=== PATIENT | female | born 1975 | race Two or more races ===

== ENCOUNTER → 2025-01-28 | Outpatient (CLI) | payer MEDICAID, SELFPAY ==
--- NOTE | 2025-01-28 11:30 | XR_ITS ---
Examination: Screening digital mammography, bilateral Computer aided detection 3-D breast Tomosynthesis, bilateral Date and time of exam: January 28, 2025 1116 hours Compared to mammograms dating to May 19, 2011 Indication: Screening Technique: Nonmagnified MLO, CC views of the breasts to been obtained, reconstructed from 3-D Tomosynthesis images. R2 computer aided detection program utilized for evaluation of suspicious masses and/or abnormal calcifications. 3-D Tomosynthesis images obtained. Findings: Scattered areas of fibroglandular density. Benign calcifications. No interval suspicious masses Impression: BI-RADS category II: Benign Findings. Recommend 1 year follow-up mammogram.
== END | disposition home or self-care (01) ==
PROVIDERS: PCP Psychiatry & Neurology Neurology
DX: Z12.31 Encounter for screening mammogram for malignant neoplasm of breast (principal); R92.323 Mammographic fibroglandular density, bilateral breasts; R92.1 Mammographic calcification found on diagnostic imaging of breast
CPT/HCPCS: 77063; 77067

== ENCOUNTER 2025-03-18 09:36 | Emergency (ER) | payer MEDICAID, SELFPAY ==
[2025-03-18 09:46] VITALS: BP 135/85; PULSE 73; RESP 17; TEMP 36.7; O2SAT 96; BMI 27.9
--- NOTE | 2025-03-18 10:07 | PC.NURSE ---
PT IN TODAY AFTER HAVING ASTHMA ATTACK THAT STARTED LAST NIGHT. PT DOES HAVE INHALER AT HOME AND DID USE IT. PT STATES THAT AT THIS TIME SHE FEELS, OK. PT SPO2 IS 95% ON RA. LUNG SOUNDS ARE CLEAR. PT AWAITING TO BE SEEN BY .
[2025-03-18 10:30] VITALS: BP 138/94; PULSE 69; RESP 15; TEMP 36.8; O2SAT 94
[2025-03-18 11:45] VITALS: PULSE 74
[2025-03-18] MEDS: ALBUTEROL RT 2.5 MG/3 ML NEBU INH (11:45)
[2025-03-18 11:46] VITALS: PULSE 65; RESP 19; O2SAT 99
--- NOTE | 2025-03-18 11:58 | PD.EDADULT ---
ED General RME/HPI General Chief complaint: Asthma Stated complaint: ASTHMA ATTACK; DIFFICULTY BREATHING Time Seen by Provider: 03/18/25 10:39 Arrival date/time: 03/18/25 09:36 Limitations: no limitations RME / HPI RME / HPI narrative: DR. PETER MAIN ED EVALUATION: 49 year old female with past medical history significant for asthma and diabetes presents to the Emergency Department with complaint of shortness of breath today. She states her inhaler is not helping. No other symptoms reported at this time. Family history is significant for diabetes. Social Hx: No tobacco, alcohol, or substance use. Related Data Home Medications ?Medication ?Instructions ?Recorded ?Confirmed fluticasone 500 mcg-salmeterol 50 1 inh inhalation Q12H 10/11/18 03/02/23 mcg/dose blistr powdr for inhalation (Advair Diskus) cetirizine 10 mg tablet (Zyrtec) 10 mg PO QDAY 02/13/19 03/02/23 albuterol sulfate 90 mcg/actuation 2 puff inhalation Q4HR PRN Wheezing 03/02/23 03/02/23 aerosol inhaler atorvastatin 20 mg tablet 20 mg PO DAILY 03/02/23 03/02/23 buspirone 10 mg tablet 10 mg PO BID 03/02/23 03/02/23 metformin 500 mg tablet 500 mg PO BID 03/02/23 03/02/23 Previous Rx's ?Medication ?Instructions ?Recorded albuterol sulfate 90 mcg/actuation 2 inh inhalation Q6H PRN shortness 03/18/25 breath activated powder inhaler of breath #1 ea azithromycin 500 mg tablet 500 mg PO QDAY 5 days #5 tabs 03/18/25 prednisone 20 mg tablet See Taper PO QDAY allergic 03/18/25 reaction #18 tabs Allergies Allergy/AdvReac Type Severity Reaction Status Date / Time Penicillins AdvReac Severe Vomiting Verified 03/18/25 09:38 Review of Systems Review of Systems Systems Reviewed: All systems reviewed, normal except as documented Past Medical History Past Medical History NEUROLOGIC: Negative Neurological Disorders or Seizures CARDIAC: Positive Cardiac Disorders and Hypercholesterolemia; Negative Congestive Heart Failure RESPIRATORY: Positive Asthma; Negative Chronic Obstructive Pulmonary Disease (COPD) GASTROINTESTINAL: Positive Gastrointestinal Disorders and Gastroesophageal Reflux Disease GENITOURINARY: Negative Genitourinary Disorders or Renal Disease REPRODUCTIVE: Positive Previous Pregnancies MUSCULOSKELETAL: Negative Musculoskeletal Disorders ENDOCRINE: Positive Endocrine Disorders and Diabetes Mellitus Type 2; Negative Diabetes Mellitus Type 1 HEMATOLOGIC: Negative Blood Disorders PSYCHO/SOCIAL: Positive Psychiatric Problems, Depression and Anxiety OTHER HISTORY: Positive Chicken Pox; Negative Autoimmune Disease, Blood Transfusions, Anesthesia Reactions or Cancer Family History FAMILY HISTORY: Positive Family Psychiatric Problems, Family Cardiac Disorders and Family Cancer; Negative Family Respiratory Disorders, Family Gastrointestinal Problems, Family Surgery or Family Anesthesia Reaction Surgical History SURGICAL: Positive Tubal Ligation (TUMOR REMOVED FROM OVERIES) Social History SMOKING STATUS: Never smoker ED Exam General Limitations: Present no limitations General appearance: Present alert and in no apparent distress Head Head exam: Present atraumatic, normocephalic and normal inspection Eye Eye exam: Present normal appearance, PERRL and EOMI ENT ENT exam: Present normal exam, normal oropharynx and mucous membranes moist Neck Neck exam: Present normal inspection, full ROM and trachea midline Chest Chest inspection: Present normal inspection and symmetric chest wall rise Respiratory Respiratory exam: Present normal lung sounds bilaterally and other (No rhonchi or rales); Absent respiratory distress or wheezes Cardiovascular Cardiovascular exam: Present regular rate, normal rhythm and normal heart sounds Abdominal Exam Abdominal exam: Present soft and normal bowel sounds Extremities Exam Extremities exam: Present normal inspection and full ROM Back Exam Back exam: Present normal inspection and full ROM Neurological Exam Neurological exam: Present alert, oriented X3 and CN II-XII intact Psychiatric Psychiatric exam: Present normal affect and normal mood Skin Skin exam: Present warm, dry, intact and normal color Course Quality Measures none Orders Category Date Time Status ALBUTEROL RT 3ml [Proventil Rt 3ml] Med 03/18/25 11:19 Discontinued 2.5 mg INH X1 ONE MethylPREDNISolone. [SoluMEDROL Inj] Med 03/18/25 11:19 Discontinued 40 mg IM X1 ONE Vital Signs Vital signs: Vital Signs Temperature 98.1 F 03/18/25 09:46 Pulse Rate 73 03/18/25 09:46 Respiratory Rate 17 03/18/25 09:46 Blood Pressure 135/85 H 03/18/25 09:46 Pulse Oximetry (%) 96 03/18/25 09:46 Discharge Plan Plan Patient Disposition: HOME (Self Care) Patient condition on transfer: Stable Prescriptions/Referrals Prescriptions/Med Rec: New prednisone 20 mg tablet See Taper PO QDAY MDD 3 Qty: 18 0RF Taper: Prednisone Taper 10 mg DAILY for 2 Days and 0 Hour Rx Instructions: Take 3 Tabs q Day for 3 days then take 2 tabs q Day for 3 days then take 1 tablet q Day for 3 days then D/C albuterol sulfate 90 mcg/actuation aerosol powdr breath activated 2 inh inhalation Q6H MDD 8 inhalations PRN (Reason: shortness of breath) Qty: 1 0RF azithromycin 500 mg tablet 500 mg PO QDAY 5 Days Qty: 5 0RF No Action fluticasone propion-salmeterol [Advair Diskus] 500-50 mcg/dose Blister With Device 1 inh INHALATION Q12H cetirizine [Zyrtec] 10 mg Tablet 10 mg PO QDAY metformin 500 mg tablet 500 mg PO BID Patient Comments: TAKE 1 TABLET BY MOUTH TWICE A DAY WITH MEALS atorvastatin 20 mg tablet 20 mg PO DAILY Patient Comments: TAKE 1 TABLET BY MOUTH EVERY DAY IN THE EVENING buspirone 10 mg tablet 10 mg PO BID Patient Comments: TAKE 2 TABLETS BY MOUTH TWICE A DAY albuterol sulfate 90 mcg/actuation HFA aerosol inhaler 2 puff INHALATION Q4HR PRN (Reason: Wheezing) Patient Comments: TAKE 2 PUFFS BY MOUTH EVERY 4 HOURS NEEDED FOR WHEEZING, SHORTNESS OF BREATH,COUGH Referrals: Lauren Valadez FNP-C [Primary Care Provider] - In 1 week Problem List Clinical Impression: Asthma with acute exacerbation Patient/Caregiver Discharge Instructions Education Materials: Asthma Additional Instructions: Please follow-up with your primary care physician within 2-3 days. Return to the Emergency Department as needed. Print Language: Icelandic Stand Alone Forms: Fauzia Award Info., Patient Portal Info Letter MDM Narrative [facility] hospital course: I, Ana Lilia Matson am scribing for and in the presence of Dr. Peter. Clinical Information Provided by patient Medical Records Reviewed [facility] Meds/Rx Considered, not Ordered None Labs/Rad/Tests considered, not Ordered None Chronic Illness/Social Conditions Add or document further as needed: PMHx: Asthma and diabetes. Family history is significant for diabetes. Social Hx: No tobacco, alcohol, or substance use. EKG EKG not done Lab Interpretation Labs: none Imaging Imaging interpretation: none Medication Administration(s) Medication Administration History Discontinued Medications Albuterol (Albuterol Rt 2.5 Mg/3 Ml Nebu) 2.5 mg INH X1 ONE Stop: 03/18/25 11:20 Last Admin: 03/18/25 11:45 Dose: 2.5 mg Documented By: TAYO Methylprednisolone Sodium Succinate (Methylprednisolone Sod Succ 40 Mg Vial) 40 mg IM X1 ONE Stop: 03/18/25 11:20 Last Admin: 03/18/25 11:28 Dose: 40 mg Documented By: CANDACE Diagnosis Differential diagnosis: asthma exacerbation, PE, pneumonia Most likely dx, and/or detailed dx discussion: Exacerbation of asthma Dispositon Disposition: Discharge Home
[2025-03-18 12:35] VITALS: BP 128/85; PULSE 88; O2SAT 96
== END 2025-03-18 12:36 | disposition home or self-care (01) ==
PROVIDERS: Emergency Provider Family Medicine
DX: J45.901 Unspecified asthma with (acute) exacerbation (principal)
CPT/HCPCS: 94640; 96372; 99283; J2919

== ENCOUNTER 2025-04-09 18:59 | Emergency (ER) | payer MEDICAID, SELFPAY ==
[2025-04-09 19:00] VITALS: BMI 27.8
[2025-04-09 19:14] VITALS: BP 126/86; PULSE 82; RESP 18; TEMP 36.9; O2SAT 95
--- NOTE | 2025-04-09 19:55 | XR_ITS ---
Examination: CT abdomen and pelvis without contrast. Coronal 3-D reconstructions. Sagittal 2-D reconstructions. Date and time of exam:April 09, 2025 2040 hours INDICATIONS: Epigastric pain beginning 2 days ago CTDI: vol (mGy): 7.85 DLP: (mGycm): 430 Technique: Axial images of the abdomen have been obtained, 3 mm slice thickness Intravenous contrast material has not been administered. Low dose protocols were performed. One or more of the following dose reduction techniques were used; automated exposure control, adjustment of the mA and/or KV according to patient size, use of iterative reconstruction technique. Findings: No focal liver or splenic lesions Contracted gallbladder. No pancreatic or adrenal mass No renal or ureteral calculi, no hydronephrosis Aorta normal size No bowel obstruction Normal appendix No diverticulitis Urinary bladder is intact IMPRESSION: No renal or ureteral calculi, no hydronephrosis. Normal appendix. No bowel obstruction diverticulitis or free air
--- NOTE | 2025-04-09 19:56 | PD.EDNV ---
Nausea/Vomit./Diarrhea-RME/HPI General Chief complaint: Nausea/Vomiting/Diarrhea Stated complaint: VOMITING Time Seen by Provider: 04/09/25 19:50 Arrival date/time: 04/09/25 18:59 49F with history of DM, asthma, and anxiety presents to ED with 1 day of N/V. Patient denies any pain including dysuria and ab pain. Patient also denies diarrhea. No new meds or dose changes. Limitations: no limitations Related Data Home Medications ?Medication ?Instructions ?Recorded ?Confirmed fluticasone 500 mcg-salmeterol 50 1 inh inhalation Q12H 10/11/18 03/02/23 mcg/dose blistr powdr for inhalation (Advair Diskus) cetirizine 10 mg tablet (Zyrtec) 10 mg PO QDAY 02/13/19 03/02/23 albuterol sulfate 90 mcg/actuation 2 puff inhalation Q4HR PRN Wheezing 03/02/23 03/02/23 aerosol inhaler atorvastatin 20 mg tablet 20 mg PO DAILY 03/02/23 03/02/23 buspirone 10 mg tablet 10 mg PO BID 03/02/23 03/02/23 metformin 500 mg tablet 500 mg PO BID 03/02/23 03/02/23 Previous Rx's ?Medication ?Instructions ?Recorded albuterol sulfate 90 mcg/actuation 2 inh inhalation Q6H PRN shortness 03/18/25 breath activated powder inhaler of breath #1 ea prednisone 20 mg tablet See Taper PO QDAY allergic 03/18/25 reaction #18 tabs Allergies Allergy/AdvReac Type Severity Reaction Status Date / Time Penicillins AdvReac Severe Vomiting Verified 04/09/25 18:59 Review of Systems Review of Systems Systems Reviewed: All systems reviewed, normal except as documented Constitutional Constitutional: Reports system reviewed and no additional complaints, except as documented, Denies fever(s) and Denies headache(s) ENT Ears, Nose, Mouth, and Throat: Denies disequilibrium and Denies headache(s) Cardiovascular Cardiovascular: Reports system reviewed and no additional complaints, except as documented, Denies chest pain and Denies dyspnea Respiratory Respiratory: Reports system reviewed and no additional complaints, except as documented, Denies cough and Denies dyspnea Gastrointestinal Gastrointestinal: Reports system reviewed and no additional complaints, except as documented, Reports as per HPI, Denies abdominal pain, Reports nausea and Reports vomiting Neurologic Neurologic: Reports system reviewed and no additional complaints, except as documented, Denies confusion, Denies disequilibrium and Denies headache(s) Psychiatric Psychiatric: Denies confusion Past Medical History Past Medical History NEUROLOGIC: Negative Neurological Disorders or Seizures CARDIAC: Positive Cardiac Disorders and Hypercholesterolemia; Negative Congestive Heart Failure RESPIRATORY: Positive Asthma; Negative Chronic Obstructive Pulmonary Disease (COPD) GASTROINTESTINAL: Positive Gastrointestinal Disorders and Gastroesophageal Reflux Disease GENITOURINARY: Negative Genitourinary Disorders or Renal Disease REPRODUCTIVE: Positive Previous Pregnancies MUSCULOSKELETAL: Negative Musculoskeletal Disorders ENDOCRINE: Positive Endocrine Disorders and Diabetes Mellitus Type 2; Negative Diabetes Mellitus Type 1 HEMATOLOGIC: Negative Blood Disorders PSYCHO/SOCIAL: Positive Psychiatric Problems, Depression and Anxiety OTHER HISTORY: Positive Chicken Pox; Negative Autoimmune Disease, Blood Transfusions, Anesthesia Reactions or Cancer Family History FAMILY HISTORY: Positive Family Psychiatric Problems, Family Cardiac Disorders and Family Cancer; Negative Family Respiratory Disorders, Family Gastrointestinal Problems, Family Surgery or Family Anesthesia Reaction Surgical History SURGICAL: Positive Tubal Ligation (TUMOR REMOVED FROM OVERIES) Social History SMOKING STATUS: Never smoker ED Exam General Limitations: Present no limitations General appearance: Present alert and in no apparent distress Head Head exam: Present atraumatic Eye Eye exam: Present normal appearance, PERRL and EOMI ENT ENT exam: Present normal exam, normal oropharynx and mucous membranes moist Neck Neck exam: Present normal inspection, full ROM and trachea midline Chest Chest inspection: Present normal inspection and symmetric chest wall rise Respiratory Respiratory exam: Present normal lung sounds bilaterally Cardiovascular Cardiovascular exam: Present regular rate, normal rhythm and normal heart sounds Abdominal Exam Abdominal exam: Present soft and normal bowel sounds Abdominal tenderness: Present LLQ and mild Extremities Exam Extremities exam: Present normal inspection and full ROM Back Exam Back exam: Present normal inspection and full ROM Neurological Exam Neurological exam: Present alert, oriented X3 and CN II-XII intact Psychiatric Psychiatric exam: Present normal affect and normal mood Skin Skin exam: Present warm, dry, intact and normal color Course Quality Measures none Orders Category Date Time Status CT abdomen pelvis wo con Stat Exams 04/09/25 19:55 Taken Beta Hydroxybutyrate Stat Lab 04/09/25 20:03 Completed CBC Stat Lab 04/09/25 20:03 Completed CMP [Comprehensive Metabolic Panel] Stat Lab 04/09/25 20:03 Completed Drug Screen,Urine Stat Lab 04/09/25 20:12 Completed HCG Qualitative,Urine Stat Lab 04/09/25 20:12 Completed Lipase Stat Lab 04/09/25 20:03 Completed Urinalysis, C/S if Indicated Stat Lab 04/09/25 20:12 Completed VBG [Venous Blood Gas] Stat Lab 04/09/25 20:03 Completed Ondansetron Odt [Zofran Odt] Med 04/09/25 19:55 Discontinued 4 mg PO X1 ONE Vital Signs Vital signs: Vital Signs Temperature 98.5 F 04/09/25 19:14 Pulse Rate 82 04/09/25 19:14 Respiratory Rate 18 04/09/25 19:14 Blood Pressure 126/86 H 04/09/25 19:14 Pulse Oximetry (%) 95 04/09/25 19:14 Oxygen Delivery Method Room Air 04/09/25 19:14 O2 at 95% on RA and WNLs Nausea/Vomiting/Diarrhea MDM Narrative MDM Narrative:: 49F with history of DM, asthma, and anxiety presents to ED with 1 day of N/V. Patient denies any pain including dysuria and ab pain. Patient also denies diarrhea. No new meds or dose changes. Physical exam reveals mild LLQ tenderness. Patient is afebrile, calm, and alert. Patient eloped. Patient data External records reviewed:: [facility] previous records Clinical information provided by:: patient Social determinants that could affect healthcare access:: mental health Patient has the following chronic illnesses:: DM, asthma, and anxiety How is presenting disease/condition affected by chronic disease/condition?: exacerbated by Evaluation data The following diagnostics were reviewed and interpreted by me:: lab results and radiology exam(s) Lab and/or radiology exams considered but not ordered:: ordered Interpretation Summary: above Medications / Prescriptions Medications / Prescriptions considered but not ordered:: ordered Medication administrations:: Medication Administration History Discontinued Medications Ondansetron HCl (Ondansetron Odt 4 Mg Tabrap) 4 mg PO X1 ONE; Protocol Stop: 04/09/25 19:56 Last Admin: 04/09/25 20:07 Dose: 4 mg Documented By: CVL above Consultations Consultation(s) initiated? (list below): No Diagnosis Nausea Differential Diagnosis: traveler's diarrhea, food poisoning, gastroenteritis, clostridium difficile infection, drug-induced nausea and vomiting, dehydration and other (N/V) Most likely diagnosis given after review of the tests above:: N/V Admission Indicated Admission indicated?: not indicated Admission Request Was there a request for admission?: No Disposition Plan Disposition Plan: other (specify) (eloped) Discharge Plan Plan Patient Disposition: Elopement Prescriptions/Referrals Prescriptions/Med Rec: No Action fluticasone propion-salmeterol [Advair Diskus] 500-50 mcg/dose Blister With Device 1 inh INHALATION Q12H cetirizine [Zyrtec] 10 mg Tablet 10 mg PO QDAY metformin 500 mg tablet 500 mg PO BID Patient Comments: TAKE 1 TABLET BY MOUTH TWICE A DAY WITH MEALS atorvastatin 20 mg tablet 20 mg PO DAILY Patient Comments: TAKE 1 TABLET BY MOUTH EVERY DAY IN THE EVENING buspirone 10 mg tablet 10 mg PO BID Patient Comments: TAKE 2 TABLETS BY MOUTH TWICE A DAY albuterol sulfate 90 mcg/actuation HFA aerosol inhaler 2 puff INHALATION Q4HR PRN (Reason: Wheezing) Patient Comments: TAKE 2 PUFFS BY MOUTH EVERY 4 HOURS NEEDED FOR WHEEZING, SHORTNESS OF BREATH,COUGH prednisone 20 mg tablet See Taper PO QDAY MDD 3 Qty: 18 0RF Taper: Prednisone Taper 10 mg DAILY for 2 Days and 0 Hour Rx Instructions: Take 3 Tabs q Day for 3 days then take 2 tabs q Day for 3 days then take 1 tablet q Day for 3 days then D/C albuterol sulfate 90 mcg/actuation aerosol powdr breath activated 2 inh inhalation Q6H MDD 8 inhalations PRN (Reason: shortness of breath) Qty: 1 0RF Referrals: Lauren Valadez FNP-C [Primary Care Provider] - In 1 week Problem List Clinical Impression: Nausea and vomiting Patient/Caregiver Discharge Instructions Print Language: Croatian ROSEANNE/JULIAN Supervising Physician ROSEANNE/JULIAN Supervising Physician: Dr. Khan
[2025-04-09] MEDS: ONDANSETRON ODT 4 MG TABRAP PO (20:07)
[2025-04-09 20:09] LABS: Base Excess, Venous 5 (-3-3); O2 Saturation, Venous 67 % (96-97); PCO2, Venous 37 mmHg (36-56); PO2, Venous 32 mmHg (15-58); pH, Venous 7.49 (7.33-7.66)
[2025-04-09 20:15] LABS: Basophils # (Auto) 0.1 Thou/mm3 (0.0-0.2); Basophils % (Auto) 1 % (0-2.5); Eosinophils # (Auto) 0.0 Thou/mm3 (0.0-0.5); Eosinophils % (Auto) 0 % (0-10); Hematocrit 39.5 % (36.0-46.0); Hemoglobin 13.7 g/dL (12.0-16.0); Immature Granulocytes Auto 0.03 Thou/mm3 (0.00-0.00); Lymphocytes # (Auto) 1.6 Thou/mm3 (1.0-4.8); Lymphocytes % (Auto) 15 % (10-50); Mean Corpuscular HGB Conc 34.7 g/dl (31.0-37.0); Mean Corpuscular Hemoglobin 30.0 pg (25.0-35.0); Mean Corpuscular Volume 87 fL (80-100); Monocytes # (Auto) 0.6 Thou/mm3 (0.0-0.8); Monocytes % (Auto) 6 % (0-12); Neutrophils # (Auto) 8.2 Thou/mm3 (1.8-7.7); Neutrophils % (Auto) 78 % (37-80); Nucleated Red Blood Cell # 0.00 Thou/mm3 (0.00-0.00); Nucleated Red Blood Cell % 0 /100 WBC (0); Platelet Count 264 Thou/mm3 (140-440); RDW Standard Deviation 40.5 fL (36.4-46.3); Red Blood Count 4.56 Miln/mm3 (4.00-5.20); White Blood Count 10.5 Thou/mm3 (3.6-11.0)
[2025-04-09 20:21] LABS: Collection Type, Urine Clean Catch
[2025-04-09 20:22] LABS: Beta Hydroxybutyrate 0.2 mmol/L (<0.6)
[2025-04-09 20:32] LABS: Alanine Aminotransferase 22 U/L (10-49); Albumin, Serum 4.5 gm/dL (3.5-5.0); Albumin/Globulin Ratio 1.6 (1.2-2.2); Alkaline Phosphatase 88 U/L (46-116); Anion Gap 11 (7-16); Aspartate Amino Transferase 22 U/L (0-34); BUN/Creatinine Ratio 18 Ratio (12-20); Bilirubin,Total 0.8 mg/dL (0.3-1.2); Blood Urea Nitrogen 14 mg/dL (9-23); Calcium 10.2 mg/dL (8.3-10.6); Calcium (Corrected) 10.2 mg/dL (8.5-10.1); Carbon Dioxide 27.5 mMol/L (20.0-31.0); Chloride 104 mMol/L (98-107); Creatinine (Component) 0.8 mg/dL (0.6-1.3); Estimated Creatinine Clearance 79.1 mL/min (>60); Globulin 2.8 gm/dL (2.3-3.5); Glucose 119 mg/dL (74-106); Lipase 37 U/L (12-53); Osmolality,Calculated 284 (275-295); Potassium 3.7 mMol/L (3.4-5.1); Sodium 142 mMol/L (136-145); Total Protein 7.3 gm/dL (5.7-8.2); eGFR > 60 See Note
[2025-04-09 20:56] LABS: Bacteria,Urine Rare; Bilirubin,Urine Negative (Negative); Blood,Urine 1+ (Negative); Clarity,Urine Clear (Clear/Hazy); Color,Urine Yellow (Lt Yel-Yel); Culture Indicated,Urine Not Indicated; Glucose, Urine Negative (Negative); Ketones,Urine Trace (Negative); Leukocyte Esterase,Urine Negative (Negative); Nitrite,Urine Negative (Negative); PH,Urine 7.0 (5.0-7.0); Protein,Urine 1+ (Neg - Trace); RBC,Urine 8 /hpf (0-3); Specific Gravity,Urine 1.033 (1.001-1.035); Squamous Epithelial Cell,Urine 1 /hpf (0-5); Urobilinogen,Urine 3.0 mg/dL (0.0-1.0); WBC,Urine 1 /hpf (0-5)
[2025-04-09 21:10] LABS: Amphetamine/Methamp Scrn,U Negative (Negative); Barbiturate Screen,Urine Negative (Negative); Benzodiazepines Screen,Urine Negative (Negative); Benzoylecgonine Screen, Ur Negative (Negative); Fentanyl Screen,Urine Negative (Negative); Opiate Screen,Urine Negative (Negative); THC Screen,Urine Negative (Negative)
[2025-04-09 21:21] LABS: HCG Qualitative,Urine Negative
--- NOTE | 2025-04-10 00:31 | PC.NURSE ---
PT INFORMED US THAT SHE IS GOING HOME, CANT WAIT FOR CT RESULT.
== END 2025-04-10 00:32 | disposition left against medical advice (07) ==
LOC: SERX 20:16
PROVIDERS: Physician Assistant; Emergency Provider Emergency Medicine
DX: R11.2 Nausea with vomiting, unspecified (principal); E11.9 Type 2 diabetes mellitus without complications; F41.9 Anxiety disorder, unspecified; J45.909 Unspecified asthma, uncomplicated
CPT/HCPCS: 36415; 74176; 80053; 80307; 81001; 81025; 82010; 82803; 83690; 85025; 99283; Q0162